=== PATIENT | female | born 1995 | race Caucasian/White ===

== ENCOUNTER 2018-04-16 19:46 | Emergency (ER) | payer BC, SELFPAY ==
[2018-04-16 19:54] VITALS: BP 134/94; PULSE 120; RESP 18; TEMP 37.4; O2SAT 97
--- NOTE | 2018-04-16 20:06 | NUR.NOTE ---
blood alcohol level as tested by was .067 Nursing Note:
[2018-04-16 20:36] LABS: Absolute Basophil Count 0.01 k/cumm (0.0-0.2); Absolute Eosinophil Count 0.11 k/cumm (0.0-0.7); Absolute Lymphocyte Count 2.93 k/cumm (1.2-3.4); Absolute Neutrophil Count 2.39 k/cumm (1.2-6.7); Basophils % 0.2; Eosinophils % 1.9; HCT 41.9 % (36.0-46.0); HGB 14.7 g/dL (12.0-15.5); Lymphocytes % 49.3; Mean Corp. HGB Concentration 35.1 g/dL (32.0-36.0); Mean Corpuscular Hemoglobin 30.4 pg (27.0-33.0); Mean Corpuscular Volume 86.6 fL (80-95); Mean Platelet Volume 9.5 fL (8.0-11.0); Monocytes % 8.4; Neutrophils % 40.2; Platelet Count 280 x1000/uL (130-400); RBC 4.84 m/cumm (4.00-5.20); RBC Distribution Width 13.2 % (11.7-14.6); White Blood Cell Count 5.94 k/cumm (4.4-10.8)
[2018-04-16] MEDS: Normal Saline 1,000 ML 1000 ML IV (20:38)
[2018-04-16] MEDS: Ketorolac 15 MG/ML VIAL IVP (20:38)
[2018-04-16 21:00] LABS: ALT 18 U/L (12-78); AST 16 U/L (15-37); Albumin 4.6 g/dL (3.4-5.0); Alkaline Phosphatase 64 U/L (46-116); Anion Gap 11.5 mmol/L (3-11); BUN 12 mg/dL (7-18); Bilirubin, Total 0.3 mg/dL (0.2-1.0); CO2 27.5 mmol/L (21.0-32.0); CREATININE 0.87 mg/dL (0.55-1.02); Calcium 8.8 mg/dL (8.5-10.1); Chloride 105 mmol/L (98-107); Glucose 109 mg/dL (70-100); Potassium 3.8 mmol/L (3.5-5.1); Sodium 144 mmol/L (136-145); Total Protein 8.2 g/dL (6.4-8.2)
[2018-04-16 21:02] LABS: Troponin I < 0.02 ng/mL (0.00-0.06)
--- NOTE | 2018-04-16 21:21 | ED.GENADUL_ITS ---
Discharge Plan Disposition Patient Disposition: HOME Condition: Good Discharge Details Chief Complaint: HeadInjury Clinical Impression: Concussion, Headache Primary Care Provider: Daysi Coronado ED Provider: Reece Schmidt Home Meds and New Rx's Prescriptions: No Action Advair HFA 8 GM HFA aerosol inhaler 2 puff Inhalation BID Qty: 1 RF: 3 PROVENTIL HFA 18 GM HFA.AER.AD 2 puff Inhalation Q4H PRN PRNQty: 2 RF: 1 Liletta 1 EACH intrauterine device 1 ea IU DIRECTED RF: 0 Discharge Instructions Instructions: Concussion (ED), General Headache (ED) Additional Instructions: If you notice any worsening of your symptoms, or any new symptoms such as vomiting, diarrhea, fever, chills, shortness of breath, chest pain, numbness, weakness, or fainting , please return immediately to the emergency department for reevaluation. Please follow up with your primary care provider as soon as possible for reassessment and reevaluation. As always, it was a pleasure participating in your medical care today. Referrals: Daysi Coronado, STUDIO SET UP WORKER [Primary Care Provider] - Medical Decision Making This is a very pleasant 22-year-old female who presents today for evaluation of mild headache. Patient states that she drank a notable amount of champagne at noon, but has had nothing since then. Unfortunately she also fell at that time and did hit her head according to bystanders. She went home and slept, had no episodes of vomiting after the fall, but when she woke up this morning she noted some mild headache. She has no historical or physical exam red flags of significant abnormality or concern with her headache, she shows no clinical signs of meningitis. Signs and symptoms are concerning for mild concussion. Because of the patient's symptoms though, as well as the fall I did discuss with the patient potential CT imaging of the head and neck, however after discussing the risks and benefits the patient has requested to hold off on the CT scan at this time she wants to avoid radiation exposure. Did discuss how this is very small amount, but the patient continues to like to hold off even after understanding the risks and benefits. Of note I do think this is reasonable though she demonstrates no neurologic deficits, no signs of significant trauma, and no other clinically concerning findings at this time. I feel that her headache is most likely secondary to a mild concussion, and recommendation for NSAIDs and continued rest will be given. However, on the patient's initial vital signs she did demonstrate evidence of tachycardia with a heart rate of 120, I did question her historically, and she states that over the last few months she has noted that when she uses her inhaler her heart rate goes up significantly and she feels notable symptoms of palpitations. She denies any recent use of her inhaler, she denies any IV or illicit drug use or any cocaine use. She denies any chest pain or shortness of breath. She denies any new medications. She does have a family history of thyroid disease. At this time, we will get an EKG, basic laboratory workup to rule out any acute process. I feel that her symptoms of elevated heart rate are certainly more chronic than acute, we will rehydrate the patient though and reassess. She did schedule an appointment with her primary care provider this week for her palpitations. 10:23 PM Patient's laboratory workup has returned and is benign, troponin, EKG, TSH are a ll normal, repeat exam demonstrates notable improvement of headache after migraine cocktail. Patient is still refusing any additional imaging. Patient is requesting discharge home at this time. I feel this is very reasonable as her heart rate has normalized, vital signs normal and she is close follow-up for her dictations. With no signs of dysrhythmia, I do not think that a Holter monitor is indicated at this time on an emergent basis. I feel her symptoms are suggestive and clinically consistent with a concussion after falling. Albeit a mild concussion. At this time her symptoms are clinically inconsistent with severe intracranial bleed, meningitis. I have extensively reviewed the treatment plan and discharge instructions with the patient and their family. I have addressed all patient concerns at this time. The patient and family was made aware of what symptoms to monitor for that would warrant a return to the emergency department. Discussed the plan with the patient and family, they demonstrate verbal understanding and agreement with our assessment and plan at this time. EKG 21: 06 Rate 95, sinus rhythm, IN 140, QTc 450, QRS 86, no significant ST elevations or depressions, T wave inversion in V1, no Q waves, no delta wave, no epsilon wave, no other abnormalities. Normal EKG HPI General Date/Time Provider Initiated Documentation: 04/16/18 19:59 . HPI Narrative: This is a pleasant 22-year-old female with past medical history of asthma who presents today for evaluation of headache. Patient states that at lunch she states that she had a whole bottle of champagne, and unfortunately the patient states that she fell and hit her head according to the people who were with her. She denies any recollection of the event, however her compatriots that this happened. She had one episode of vomiting prior to the initial fall, but had no episodes of vomiting after she fell and hit her head. Friends who were there state to that she was able to get up and walk around without difficulty after she fell. Immediately after this she went home and slept for the next 7 hours. When she woke up she noted a mild to moderate headache, and came in for evaluation of this. She states that she has a history of migraines but feels that this feels a little bit different. The patient denies any headache red flags of worst headache of life, thunderclap headache, neck pain, fever, chills, concerning family history of polycystic kidney disease, Marfan syndrome, Germaine-Danlos syndrome, abdominal aortic aneurysm, aortic dissection, or intracranial aneurysm. She denies any symptoms of nausea, chest pain, abdominal pain, midline neck pain. She denies any other complaints or associated symptoms at this time. She states that she feels like she is at her baseline at this time. Boyfriend who brought the patient here also states that she is acting normally. No other complaints at this time. No other modifying factors. She denies any recent surgeries, IV or illicit drug use. Family history is positive for thyroid disease. Related Data Home Medications Medication Instructions Recorded Confirmed Dez 1 ea IU DIRECTED 11/11/16 04/16/18 fluticasone-salmeterol [Advair Hfa 2 puff INHALATION BID #1 inhaler 07/13/17 04/16/18 230-21] Previous Rx's Medication Instructions Recorded fluticasone-salmeterol [Advair Hfa 2 puff INHALATION BID #1 inhaler 07/13/17 230-21] Allergies Allergy/AdvReac Type Severity Reaction Status Date / Time No Known Allergies Allergy Verified 04/16/18 19:56 General Stated Complaint: HeadInjury MARIAN: 4 Review of Systems Review of Systems All systems reviewed & are unremarkable except as noted in HPI and below PFSH Surgical History Tonsillectomy (02/14/17) Family History Mother No problems noted. Father No problems noted. Sister No problems noted. Sister No problems noted. Grandfather No problems noted. Grandmother No problems noted. Social History Smoking/Tobacco Use Status: Never Exam Narrative Exam Narrative: 1.Const: Well-nourished, Well-developed, appearing stated age 2.Eyes: PERRL, no conjunctival injection, and symmetrical lids. 3.ENT: Atraumatic external nose and ears. Moist MM. Neck: Symmetric, trachea midline, No thyromegaly. Patient demonstrates good movement of cervical neck. There is no nuchal rigidity, no nuchal tenderness. Patient is able to flex the neck without any difficulty or significant pain. Negative Kernig's and Brudzinski sign. There is no evidence of raccoon eyes, lin sign, CSF rhinorrhea, mastoid tenderness, cranial crepitus, hemotympanum, exophthalmos, or hyphema. 4.CVS: +S1/S2, No murmurs or gallops. Peripheral pulses 2+ and equal in all extremities. Brisk capillary refill in all extremities. 5.RESP: Unlabored respiratory effort. Clear to auscultation bilaterally. No wheezes rales or rhonchi 6.GI: Soft, Nontender/Nondistended, No hepatosplenomegaly. No guarding or rebound. 7.MSK: Normocephalic/Atraumatic, Extremities w/o deformity or ttp No cyanosis or clubbing, Normal movement of all extremities. Minimal mild tenderness over the anterior forehead, no evidence of bruising or hematoma. No midline tenderness to palpation over the CTLS spine. Minimal left-sided paraspinal cervical spine tenderness. Minimal right-sided paraspinal cervical spine tenderness. No midline cervical spine tenderness. Normal ROM in flexion, extension, side bend, and rotation. Patient has +5 out of 5 strength in the lower extremities in dorsiflexion and plantarflexion, knee flexion and extension, hip flexion and extension. There is +2 over 2 dorsalis pedis pulses bilaterally. There is normal sensation to the skin with light touch at the foot, knee, and hip. Normal saddle sensation. Good sensation over the deep sural nerve area bilaterally. Rectal exam deferred. Reflexes are +2 over 4 in the patellar reflex bilaterally. +5 out of 5 strength in the medial, ulnar, radial nerve distribution bilaterally in the hands as well as intact light touch sensation to these dermatomes on the hands 8.Skin: Warm, Dry. No rashes or lesions. 9.Neuro: merchandise appraiser II-XII grossly intact. Sensation grossly intact, no focal neurologic deficits. All 6 cardinal planes of vision are fully intact. No evidence of rotatory or vertical nystagmus. The patient demonstrated a normal [id number], good dexterity. There was no evidence of dysdiadochokinesia. Patient was able to ambulate without difficulty. There was no wide-based gait. Romberg, and zhlk-[id number] are both normal on testing. Sensation was intact bilaterally as well as muscle strength bilaterally for all extremities. Patient was able to verbalize butter cup with no slurring, or miss pronunciation. 10.Psych: (AAO) x3. Appropriate mood and affect. The patient is able to speak clearly. There is no demonstration of any slurring of speech. There is evidence of clear decision making capacity. Patient is able to ambulate well without any difficulty. There are no signs of ataxia or stumbling motions. Course Vital Signs Temperature 37.4 C 04/16/18 19:54 Pulse 120 H 04/16/18 19:54 Respiratory Rate 18 04/16/18 19:54 Blood Pressure 134/94 H 04/16/18 19:54 Pulse Oximetry 97 04/16/18 19:54 Temperature 37.4 C 04/16/18 19:54 Temperature Source Skin 04/16/18 19:54 Pulse 120 H 04/16/18 19:54 Respiratory Rate 18 04/16/18 19:54 Respiratory Effort 04/16/18 20:07 Blood Pressure 134/94 H 04/16/18 19:54 Blood Pressure Position Supine 04/16/18 19:54 Pulse Oximetry 97 04/16/18 19:54 Oxygen Delivery Method Room Air 04/16/18 19:54 Oxygen Flow Rate 0 04/16/18 19:54 Pain Level 8 04/16/18 19:54 Lab/Test Results Lab/Test Results: Laboratory Tests Range/Units 04/16/18 04/16/18 20:30 20:30 WBC (4.4-10.8) k/cumm 5.94 RBC (4.00-5.20) m/cumm 4.84 Hgb (12.0-15.5) g/dL 14.7 Hct (36.0-46.0) % 41.9 MCV (80-95) fL 86.6 MCH (27.0-33.0) pg 30.4 MCHC (32.0-36.0) g/dL 35.1 RDW (11.7-14.6) % 13.2 Plt Count (130-400) x1000/uL 280 MPV (8.0-11.0) fL 9.5 Immature Gran % 0.0 Neutrophils % 40.2 Lymphocytes % 49.3 Monocytes % 8.4 Eosinophils % 1.9 Basophils % 0.2 Absolute Neutrophils (1.2-6.7) k/cumm 2.39 Absolute Lymphocytes (1.2-3.4) k/cumm 2.93 Absolute Monocytes (0.11-0.7) k/cumm 0.50 Absolute Eosinophils (0.0-0.7) k/cumm 0.11 Absolute Basophils (0.0-0.2) k/cumm 0.01 Sodium (136-145) mmol/L 144 Potassium (3.5-5.1) mmol/L 3.8 Chloride (98-107) mmol/L 105 Carbon Dioxide (21.0-32.0) mmol/L 27.5 Anion Gap (3-11) mmol/L 11.5 H BUN (7-18) mg/dL 12 Creatinine (0.55-1.02) mg/dL 0.87 Estimated GFR/1.73 m2 (mL/min/1.73m2) >= 60.00 Glucose (70-100) mg/dL 109 H Calcium (8.5-10.1) mg/dL 8.8 Total Bilirubin (0.2-1.0) mg/dL 0.3 AST (15-37) U/L 16 ALT (12-78) U/L 18 Alkaline Phosphatase (46-116) U/L 64 Troponin I (0.00-0.06) ng/mL < 0.02 Total Protein (6.4-8.2) g/dL 8.2 Albumin (3.4-5.0) g/dL 4.6
[2018-04-16 21:24] LABS: TSH (W/Ref FT4) 2.07 uIU/mL (0.358-3.74)
[2018-04-16 21:34] VITALS: BP 119/68; PULSE 93; RESP 16; TEMP 37.2; O2SAT 97
[2018-04-16] MEDS: Dexamethasone 10 MG/ML VIAL IVP (22:02)
[2018-04-16] MEDS: diphenhydrAMINE 25 MG CAP PO (22:04)
[2018-04-16] MEDS: Prochlorperazine 10 MG/2 ML VIAL IVP (22:05)
== END 2018-04-16 22:41 | disposition home or self-care (01) ==
PROVIDERS: Emergency Provider Student in an Organized Health Care Education/Training Program
DX: S06.0X0A Concussion without loss of consciousness, initial encounter (principal); W01.0XXA Fall on same level from slipping, tripping and stumbling without subsequent striking against object, initial encounter
CPT/HCPCS: 80053; 96361; 96374; 96375; 99284; 84443; 84484; 85025; J0780; J1100; J1885

== ENCOUNTER 2018-10-10 08:36 | Outpatient (CLI) | payer BC, SELFPAY ==
[2018-10-10 09:57] LABS: ESR 15 mm/hr (0-20)
[2018-10-10 10:19] LABS: Vitamin B12 697 pg/mL (193-986)
[2018-10-11 11:35] LABS: Lyme Ab w Rflx to Lyme Confirm Negative
[2018-10-11 14:40] LABS: ANA Interpretation Negative (NEGAT)
[2018-10-12 06:14] LABS: Vitamin D 25 Total 35.8 ng/ml (30-100)
== END 2018-10-10 08:56 ==
PROVIDERS: Visit Provider Nurse Practitioner
DX: R53.83 Other fatigue (principal); E55.9 Vitamin D deficiency, unspecified
CPT/HCPCS: 36415; 82306; 85652; 82607; 86038; 86618

== ENCOUNTER 2019-10-16 08:04 | Outpatient (CLI) | payer BC, SELFPAY ==
[2019-10-18 06:31] LABS: SARS-CoV-2 RNA Undetected (Undetected); SARS-CoV-2 Specimen Source Nasopharynx
== END 2019-10-16 08:24 ==
PROVIDERS: PCP Nurse Practitioner; Visit Provider Nurse Practitioner
DX: Z11.59 Encounter for screening for other viral diseases (principal)
CPT/HCPCS: U0003

== ENCOUNTER 2020-07-23 09:42 | Outpatient (CLI) | payer BC, SELFPAY ==
[2020-07-24 11:49] LABS: COVID-19 RT-PCR UVMMC Result Negative (Negative)
== END 2020-07-23 09:43 | disposition home or self-care (01) ==
PROVIDERS: PCP Nurse Practitioner; Visit Provider Nurse Practitioner
DX: Z20.822 Contact with and (suspected) exposure to COVID-19 (principal)
CPT/HCPCS: U0003

== ENCOUNTER 2020-10-08 11:04 | Outpatient (CLI) | payer BC, SELFPAY ==
[2020-10-09 11:30] LABS: COVID-19 RT-PCR UVMMC Result Negative (Negative)
== END 2020-10-08 11:05 | disposition home or self-care (01) ==
PROVIDERS: PCP Nurse Practitioner; Visit Provider Nurse Practitioner
DX: Z20.822 Contact with and (suspected) exposure to COVID-19 (principal); R51.9 Headache, unspecified; R11.10 Vomiting, unspecified
CPT/HCPCS: U0003

== ENCOUNTER 2021-06-22 14:20 | Outpatient (REF) | payer OTHER, SELFPAY | END 2021-06-22 14:21 | disposition home or self-care (01) | LOC: LBN 14:20 | PROVIDERS: PCP Nurse Practitioner; Visit Provider Nurse Practitioner Family | DX: N76.0 Acute vaginitis (principal) | CPT/HCPCS: 87480; 87510; 87660 ==

== ENCOUNTER 2021-10-26 16:26 | Outpatient (REF) | payer OTHER, SELFPAY | END 2021-10-26 16:27 | disposition home or self-care (01) | LOC: LBN 16:26 | PROVIDERS: PCP Nurse Practitioner; Visit Provider Nurse Practitioner Family | DX: H60.11 Cellulitis of right external ear (principal) | CPT/HCPCS: 87077; 87070; 87186; 87205 ==

== ENCOUNTER 2022-09-06 09:13 | Outpatient (CLI) | payer OTHER, SELFPAY ==
[2022-09-06 12:26] LABS: HCT 40.7 % (36.0-46.0); HGB 13.8 g/dL (11.2-15.7); MCHC 33.9 % (32.0-36.0); MCV 89 fL (80-95); Platelet Count 296 10^3/uL (130-400); RDW 12.4 % (11.7-14.6); RDW-SD 40.2 fL; WBC 4.64 10^3/uL (4.4-10.8)
[2022-09-06 13:07] LABS: Anion Gap 11.2 mmol/L (3-11); BUN 10 mg/dL (7-18); CO2 25.8 mmol/L (21.0-32.0); CREATININE 0.9 mg/dL (0.55-1.02); Calcium 9.2 mg/dL (8.5-10.1); Chloride 104 mmol/L (98-107); Estimated GFR 89.86 (mL/min/1.73m2); Glucose 103 mg/dL (74-106); Potassium 4.2 mmol/L (3.5-5.1); Sodium 141 mmol/L (136-145); TSH (W/Ref FT4) 2.28 uIU/mL (0.36-3.74)
== END 2022-09-06 09:14 | disposition home or self-care (01) ==
LOC: LOS 09:14
PROVIDERS: PCP Nurse Practitioner Family; Referring Provider Nurse Practitioner Family; Visit Provider Nurse Practitioner Family
DX: Z00.00 Encounter for general adult medical examination without abnormal findings (principal); G43.909 Migraine, unspecified, not intractable, without status migrainosus; J45.909 Unspecified asthma, uncomplicated; F32.9 Major depressive disorder, single episode, unspecified
CPT/HCPCS: 36415; 80048; 85027; 84443

== ENCOUNTER 2023-06-21 10:15 | Outpatient (CLI) | payer BC, SELFPAY ==
[2023-06-21 12:07] LABS: Abs Immature Grans 0.01 10^3/uL (0.0-0.06); Absolute Basophil Count 0.02 10^3/uL (0.0-0.2); Absolute Eosinophil Count 0.04 10^3/uL (0.0-0.7); Absolute Lymphocyte Count 2.33 10^3/uL (1.2-3.4); Absolute Neutrophil Count 1.91 10^3/uL (1.2-6.7); Basophils % 0.4; ESR 6 mm/hr (0-20); Eosinophils % 0.8; HCT 40.7 % (36.0-46.0); HGB 13.6 g/dL (11.2-15.7); Immature Grans % 0.2; Lymphocytes % 48.4; MCH 30.3 pg (27.0-33.0); MCHC 33.4 % (32.0-36.0); MCV 91 fL (80-95); MPV 9.5 fL (8.0-11.0); Monocytes % 10.4; Neutrophils % 39.8; Platelet Count 278 10^3/uL (130-400); RBC 4.49 10^6/uL (3.93-5.22); RDW 13.1 % (11.7-14.6); RDW-SD 43.5 fL; WBC 4.81 10^3/uL (4.4-10.8)
[2023-06-21 12:37] LABS: ALT 23 U/L (14-59); AST 16 U/L (15-37); Alkaline Phosphatase 53 U/L (46-116); Anion Gap 11.2 mmol/L (3-11); BUN 13 mg/dL (7-18); Bilirubin, Total 0.4 mg/dL (0.2-1.0); CO2 25.8 mmol/L (21.0-32.0); CREATININE 0.9 mg/dL (0.55-1.02); Calcium 9.3 mg/dL (8.5-10.1); Chloride 106 mmol/L (98-107); Glucose 94 mg/dL (74-106); Potassium 4.1 mmol/L (3.5-5.1); Sodium 143 mmol/L (136-145); Total Protein 7.5 g/dL (6.4-8.2)
== END 2023-06-21 10:16 | disposition home or self-care (01) ==
LOC: LOS 10:15
PROVIDERS: Family Medicine; PCP Nurse Practitioner Family; Referring Provider Nurse Practitioner Family; Visit Provider Nurse Practitioner Family
DX: G47.33 Obstructive sleep apnea (adult) (pediatric) (principal); Z99.89 Dependence on other enabling machines and devices; R05.9 Cough, unspecified; I10 Essential (primary) hypertension
CPT/HCPCS: 36415; 80053; 85652; 86713; 85025

== ENCOUNTER → 2023-06-21 14:32 | Outpatient (CLI) | payer BC, SELFPAY ==
--- NOTE | 2023-06-21 13:10 | DI.RAD_ITS ---
Exam(s) XR CHEST 2V PA LATERAL EXAM: XR CHEST 2V PA LATERAL CLINICAL HISTORY: cough R05.9 SLEEP APNEA G47.33 Z99.89 KRISTY ON CPAP. TECHNIQUE: 2D digital imaging was performed. COMPARISON: CR CHEST 2 VIEWS PA,LAT from 12/31/2009 FINDINGS: 2 views: Heart size is normal. The mediastinum is not widened. Lungs are clear. No infiltrates nor pleural effusions. IMPRESSION: No acute pulmonary findings. DATA REPOSITORY: RADIATION DOSE DELIVERED:
== END ==
PROVIDERS: PCP Nurse Practitioner Family; Visit Provider Family Medicine
DX: R05.8 Other specified cough (principal); G47.33 Obstructive sleep apnea (adult) (pediatric); Z99.89 Dependence on other enabling machines and devices
CPT/HCPCS: 71046

== ENCOUNTER 2023-07-01 02:40 | Outpatient (CLI) | payer BC, SELFPAY ==
[2023-07-01] MEDS: Levalbuterol HFA 15 GM INH 4 PUFF IH (09:01)
[2023-07-01] MEDS: Inhaler, Assist Device 1 EACH MC (09:02)
--- NOTE | 2023-07-01 09:43 | W.PFT ---
Date of service: 07/01/23 Time of Service: 08:04 Pulmonary Function Test Result Indications: Asthma Interpretation Spirometry: There is no airflow limitation. No bronchodilator response. Lung Volumes: Normal lung volumes Diffusion Capacity: Normal diffusion Airway Pressure: Normal airways resistance Impression Normal pulmonary function testing Clinical Correlation therefore is recommended.
== END 2023-07-01 02:41 | disposition home or self-care (01) ==
LOC: RT 02:40
PROVIDERS: PCP Nurse Practitioner Family; Visit Provider Family Medicine
DX: J45.909 Unspecified asthma, uncomplicated (principal)
CPT/HCPCS: 94060; 94726; 94729

== ENCOUNTER 2023-07-01 18:54 | Outpatient (REF) | payer BC, SELFPAY ==
[2023-07-04 07:57] LABS: IgE 3 IU/mL (<158)
[2023-07-04 10:14] LABS: IgA 68 mg/dL (85-499); IgG 752 mg/dL (610-1616); IgM 203 mg/dL (35-242)
[2023-07-05 22:50] LABS: Aspergillus Fumigatus IgE <0.10 kU/L (<0.70); Beech IgE <0.10 kU/L (<0.70); Bermuda Grass IgE <0.10 kU/L (<0.70); Candida Albicans (Monilia),IgE <0.10 kU/L (<0.70); Cat Epithelium IgE <0.10 kU/L (<0.70); Cedar, IgE <0.10 kU/L (<0.70); Cladosporium IgE <0.10 kU/L (<0.70); Cockroach IgE <0.10 kU/L (<0.70); D Farinae IgE <0.10 kU/L (<0.70); D Pteronyssinus IgE <0.10 kU/L (<0.70); Dog Dander IgE <0.10 kU/L (<0.70); Elm IgE <0.10 kU/L (<0.70); Giant Ragweed IgE <0.10 kU/L (<0.70); Goldenrod IgE <0.10 kU/L (<0.70); Hamster Epithelium, IgE <0.10 kU/L (<0.70); Horse Dander, IgE <0.10 kU/L (<0.70); House Dust/Greer Lab, IgE <0.10 kU/L (<0.70); Mouse Serum Protein IgE <0.10 kU/L (<0.70); Oak IgE <0.10 kU/L (<0.70); Orchard Grass, IgE <0.10 kU/L (<0.70); Spruce, IgE <0.10 kU/L (<0.70); Stemphyllium IgE <0.10 kU/L (<0.70); Timothy Grass IgE <0.10 kU/L (<0.70); Walnut Tree IgE <0.10 kU/L (<0.70); White Pine, IgE <0.10 kU/L (<0.70)
[2023-07-05 23:04] LABS: Botrytis Cinerea IgE <0.10 kU/L (<0.70); False Ragweed, IgE <0.10 kU/L (<0.70)
[2023-07-07 16:47] LABS: CLASS 0; Cedar Red IgE <0.10 kU/L (<0.35)
[2023-07-07 19:54] LABS: Rabbit Epithelium IgE <0.10 kU/L (<0.70)
== END 2023-07-01 18:55 | disposition home or self-care (01) ==
LOC: LBN 18:54
PROVIDERS: PCP Nurse Practitioner Family; Visit Provider Student in an Organized Health Care Education/Training Program
DX: J45.909 Unspecified asthma, uncomplicated (principal)
CPT/HCPCS: 82784; 86003; 82785; 82787; 84307

== ENCOUNTER 2023-07-05 09:43 | Outpatient (CLI) | payer BC, SELFPAY ==
[2023-07-05 13:11] LABS: TSH (W/Ref FT4) 1.49 uIU/mL (0.36-3.74)
[2023-07-06 11:02] LABS: Lyme Ab w Rflx to Lyme Confirm Negative (Negative)
[2023-07-08 00:06] LABS: Anaplasma phagocytophilum Negative (Negative); B. miyamotoi PCR Negative (Negative); Babesia divergens/MO-1 Negative (Negative); Babesia duncani Negative (Negative); Babesia microti Negative (Negative); Ehrlichia chaffeensis Negative (Negative); Ehrlichia ewingii/canis Negative (Negative); Ehrlichia muris eauclairensis Negative (Negative)
== END 2023-07-05 09:44 | disposition home or self-care (01) ==
LOC: LOS 09:43
PROVIDERS: PCP Nurse Practitioner Family; Referring Provider Nurse Practitioner Family; Visit Provider Nurse Practitioner Family
DX: G89.29 Other chronic pain (principal); J45.909 Unspecified asthma, uncomplicated; R53.83 Other fatigue
CPT/HCPCS: 36415; 87798; 84443; 86480; 86618

== ENCOUNTER 2023-07-07 14:10 | Outpatient (CLI) | payer BC, SELFPAY ==
[2023-07-11 13:13] LABS: TB Interpretation Negative (Negative)
== END 2023-07-07 14:11 | disposition home or self-care (01) ==
LOC: LBO 14:11
PROVIDERS: PCP Nurse Practitioner Family; Visit Provider Nurse Practitioner Family
DX: J45.909 Unspecified asthma, uncomplicated; R53.83 Other fatigue; R52 Pain, unspecified
CPT/HCPCS: 86480

== ENCOUNTER 2024-03-01 14:26 | Outpatient (REF) | payer BC, SELFPAY ==
[2024-03-01 21:37] LABS: Abs Immature Grans 0.02 10^3/uL (0.0-0.06); Absolute Basophil Count 0.03 10^3/uL (0.0-0.2); Absolute Eosinophil Count 0.02 10^3/uL (0.0-0.7); Absolute Lymphocyte Count 2.25 10^3/uL (1.2-3.4); Absolute Monocyte Count 0.53 10^3/uL (0.1-0.8); Absolute Neutrophil Count 2.93 10^3/uL (1.2-6.7); Basophils % 0.5 %; Eosinophils % 0.3 %; HCT 42.5 % (36.0-46.0); HGB 14.4 g/dL (11.2-15.7); Immature Grans % 0.3 %; Lymphocytes % 38.9 %; MCH 30.4 pg (27.0-33.0); MCHC 33.9 % (32.0-36.0); MCV 90 fL (80-95); MPV 9.8 fL (8.0-11.0); Monocytes % 9.2 %; Neutrophils % 50.8 %; Platelet Count 295 10^3/uL (130-400); RBC 4.73 10^6/uL (3.93-5.22); RDW 12.8 % (11.7-14.6); RDW-SD 42.3 fL; WBC 5.78 10^3/uL (4.4-10.8)
[2024-03-01 22:58] LABS: ALT 33 U/L (14-59); AST 21 U/L (15-37); Albumin 4.4 g/dL (3.4-5.0); Alkaline Phosphatase 63 U/L (46-116); Anion Gap 11.9 mmol/L (3-11); BUN 13 mg/dL (7-18); Bilirubin, Total 0.47 mg/dL (0.2-1.0); CO2 24.1 mmol/L (21.0-32.0); CREATININE 1.1 mg/dL (0.55-1.02); Chloride 105 mmol/L (98-107); Estimated GFR 69.76 (mL/min/1.73m2); Glucose 90 mg/dL (74-106); Lipase 61 U/L (<78); Magnesium 2.1 mg/dL (1.8-2.4); Potassium 4.1 mmol/L (3.5-5.1); Sodium 141 mmol/L (136-145); Total Protein 7.4 g/dL (6.4-8.2)
== END 2024-03-01 14:27 | disposition home or self-care (01) ==
LOC: LBN 14:26
PROVIDERS: PCP Nurse Practitioner Family; Visit Provider Nurse Practitioner Family
DX: R10.31 Right lower quadrant pain (principal); R11.2 Nausea with vomiting, unspecified
CPT/HCPCS: 80053; 83690; 83735; 85025

== ENCOUNTER 2024-03-02 08:55 | Outpatient (REF) | payer BC, SELFPAY ==
[2024-03-06 13:31] LABS: Helicobacter pylori Ag, Feces Negative (Negative)
== END 2024-03-02 08:56 | disposition home or self-care (01) ==
LOC: LBN 08:55
PROVIDERS: PCP Nurse Practitioner Family; Visit Provider Nurse Practitioner Family
DX: K21.9 Gastro-esophageal reflux disease without esophagitis
CPT/HCPCS: 87338

== ENCOUNTER 2024-03-20 09:23 | Day surgery (SDC) | payer BC, SELFPAY ==
[2024-03-20] MEDS: Lactated Ringers 1,000 ML 80 ML IV (10:02)
--- NOTE | 2024-03-20 10:13 | ANES.PREOP_ITS ---
General Info Date of Service Date Performed: 03/20/24 Height: 5 ft 3 in Weight: 69.2 kg Body Mass Index (BMI): 27.0 Surgical Procedure: Operation Date: 03/20/24 10:20 Proposed Procedure Side Surgeon p Colonoscopy/Gastroscopy Yolanda Beauchamp, Meds Allergies and Home Medications Allergies Allergy/AdvReac Type Severity Reaction Status Date / Time Bleach (Sodium Hypochlorite) Allergy Intermediate hives Verified 03/20/24 09:52 Home Medication ?Medication ?Instructions ?Recorded oxygen-air delivery systems ##1 08/22/20 budesonide-formoterol HFA 160 2 puff inhalation BID #10.2 grams 06/21/23 mcg-4.5 mcg/actuation aerosol inhaler (Symbicort) hydroxyzine HCl 10 mg tablet 10 mg PO TID PRN anxiety 08/17/23 rizatriptan 10 mg disintegrating See Rx Instructions PO .COMPLEX 08/17/23 tablet #10 tabs fluticasone propionate 50 2 spray intranasal DAILY #16 grams 08/30/23 mcg/actuation nasal spray,suspension (Flonase Allergy Relief) albuterol sulfate 90 mcg/actuation 2 puff inhalation Q6H PRN 11/22/23 aerosol inhaler (Proventil HFA) shortness of breath or wheezing #8.5 grams fluoxetine 10 mg capsule 10 mg PO DAILY #90 caps 02/06/24 trazodone 50 mg tablet 100 mg (2 x 50 mg) PO QHS PRN 02/06/24 sleep #180 tabs norethindrone acetate 5 mg tablet 5 mg PO DAILY 02/15/24 omeprazole 40 mg capsule,delayed 40 mg PO DAILY #30 caps 03/01/24 release bisacodyl 5 mg tablet,delayed 5 mg PO ONCE #4 tabs 03/15/24 release (Dulcolax (bisacodyl)) polyethylene glycol 3350 17 17 g PO ONCE #238 grams 03/15/24 gram/dose oral powder Current Visit Medications: Current Medications Generic Name Dose Route Start Last Admin Trade Name Freq PRN Reason Stop Dose Admin Ringer's Solution 1,000 mls @ 80 mls/hr 03/20/24 09:30 03/20/24 10:02 IV 04/19/24 09:29 80 mls/hr INFUSION ARTIE Administration IV Miscellaneous Supplies 1 each 03/20/24 06:00 Iv Access IV 03/20/24 23:59 DIRECTED ARTIE Sodium Chloride 0 ml 03/20/24 06:00 Normal Saline Flush 10 Ml Syr IV 03/20/24 23:59 PRN PRN Sodium Chloride 0 ml 03/20/24 06:00 Normal Saline 10 Ml Vial IJ 03/20/24 23:59 DIRECTED PRN Sterile Water 0 ml 03/20/24 06:00 Water,Injection,Sterile 10 Ml Vial IJ 03/20/24 23:59 DIRECTED PRN PFSH Active Problems Active Problems: Problem Status Onset Code Acid reflux Chronic K21.9 RLQ abdominal pain Acute R10.31 Nausea and vomiting Acute R11.2 Environmental allergies Acute Z91.09 Insomnia Acute G47.00 Cough Acute R05.9 Skin lesions, generalized Acute L98.9 Major depression Chronic F32.9 Asthma Chronic J45.909 Menstrual pain Acute N94.6 KRISTY on CPAP Chronic G47.33, Z99.89 Migraine without status migrainosus, not intractable Chronic 01/12/17 G43.909 Medical History Medical History Endometriosis determined by laparoscopy Anxiety and depression (01/12/17) 04/22/17 PHQ-9 SCORE = 14 HAL-7 SCORE=5 Surgical History Surgical History S/P GABI (total abdominal hysterectomy) (~2022) Ovaries remain Tonsillectomy (02/14/17) B/L Tobacco Smoking/Tobacco Use Status: Former Tobacco Use Passive smoking exposure: Yes Second hand exposure: Yes Alcohol Alcohol Intake: current Alcohol intake frequency: a few times a month Alcohol type: beer, wine and hard liquor Substance Use Substance use: Occasionally Substance use type: marijuana Vital Signs and Lab Results Lab Results Blood Type / Crossmatch: No Data to Display Complete Blood Count: White Blood Count 5.78 10^3/uL (4.4-10.8) 03/01/24 14:00 Red Blood Count 4.73 10^6/uL (3.93-5.22) 03/01/24 14:00 Hemoglobin 14.4 g/dL (11.2-15.7) 03/01/24 14:00 Hematocrit 42.5 % (36.0-46.0) 03/01/24 14:00 Platelet Count 295 10^3/uL (130-400) 03/01/24 14:00 Complete Metabolic Panel: Sodium 141 mmol/L (136-145) 03/01/24 14:00 Potassium 4.1 mmol/L (3.5-5.1) 03/01/24 14:00 Chloride 105 mmol/L (98-107) 03/01/24 14:00 Carbon Dioxide 24.1 mmol/L (21.0-32.0) 03/01/24 14:00 BUN 13 mg/dL (7-18) 03/01/24 14:00 Creatinine 1.1 mg/dL (0.55-1.02) H 03/01/24 14:00 Est GFR (CKD-EPI 2020) 69.76 (mL/min/1.73m2) 03/01/24 14:00 Magnesium 2.1 mg/dL (1.8-2.4) 03/01/24 14:00 Calcium 9.0 mg/dL (8.5-10.1) 03/01/24 14:00 Albumin 4.4 g/dL (3.4-5.0) 03/01/24 14:00 Glucose 90 mg/dL (74-106) 03/01/24 14:00 Liver Function Panel: Alanine Aminotransferase (ALT/SGPT) 33 U/L (14-59) 03/01/24 14: 00 Aspartate Amino Transf (AST/SGOT) 21 U/L (15-37) 03/01/24 14:00 Coagulation Panel: No Data to Display Cardiac Panel: No Data to Display Arterial Blood Gas: No Data to Display Venous Blood Gas: No Data to Display Pancreas Panel: Lipase 61 U/L (<78) 03/01/24 14:00 Thyroid Panel: No Data to Display Infectious Disease: No Data to Display Blood Cultures: No Data to Display Toxicology Panel: No Data to Display Panel: No Data to Display Imaging and Studies Imaging and Studies Study information below may be from another EMR and interpreted by another provider. Please see original notes in EMR for more complete details. Pulmonary Function Summary: 07/01/23: Pulmonary Function Test Result Indications: Asthma Interpretation Spirometry: There is no airflow limitation. No bronchodilator response. Lung Volumes: Normal lung volumes Diffusion Capacity: Normal diffusion Airway Pressure: Normal airways resistance Impression Normal pulmonary function testing Clinical Correlation therefore is recommended. Anesthesia Assessment and Plan Anesthesia History Personal History: No History of Anesthesia Complications Family History: No Family History of Anesthesia Complications Exercise Tolerance Exercise Tolerance: Metabolic Equivalents>4 Pertinent Negatives Pertinent Negatives: No Major Cardiovascular Symptoms or Complaints and No Major Pulmonary Symptoms or Complaints Cardiac & Pulmonary Exam Cardiac Exam: Normal S1/S2 Heart Sounds Pulmonary Exam: Clear Bilateral Breath Sounds Implantable Cardiac Device Does patient have a Pacemaker or an ICD?: No Airway Exam Known Difficult Airway: No Mallampati Class: 2 Mouth Opening: Normal (> 3cm) Thyromental Distance: Greater than 3 cm Neck Range of Motion: Full ROM Neck Circumference: Normal Teeth Condition: Normal Dentition ASA Classification ASA Score: ASA 2 Emergency Case?: No NPO Status NPO Status: NPO Clears >2 hours, Solids >8 hours Status Status: History of Hysterectomy Anesthesia Plan Resuscitation Status: Full Code Anesthesia Technique: General Anesthesia Airway Planned: Natural Airway Monitors Used: Standard Monitors
[2024-03-20 10:21] VITALS: BMI 27.0
--- NOTE | 2024-03-20 11:52 | BOWEL_PTH ---
PATIENT: Cesar Acosta LOC: [facility] U#:[id number] AGE/SX: 28/F ROOM: RE03/20/[address]: Yolanda Beauchamp : 1995 BED: DIS: 03/20/2024 SPEC #: [id number] RECD: 03/20/24 12:48 STATUS: TIERNEY REAllyn #: [id number] JENNIFER: 03/20/24 11:[address]: Yolanda Beauchamp DEPT: Surgical Specimen RECD BY: Flores Eng ENTERED: 03/20/24 12:51 SP TYPE: Bowel OTHR DR: Mary Enrique, LOBSTER FISHERMAN Tissues: 1 - BIOPSY BOWEL 2 - BIOPSY BOWEL 3 - STOMACH BIOPSY 4 - STOMACH BIOPSY 5 - ESOPHAGUS BIOPSY 6 - ESOPHAGUS BIOPSY 7 - BIOPSY BOWEL 8 - BIOPSY BOWEL 9 - BIOPSY BOWEL 10 - BIOPSY BOWEL Procedures: GROSS AND MICRO LEVEL 4 Comments: [id number]
[2024-03-20 12:28] VITALS: BP 112/73; PULSE 94; RESP 16; TEMP 36.6; O2SAT 100
--- NOTE | 2024-03-20 12:28 | COLE_ITS ---
Date of service: 03/20/24 Time of Service: 12:28 Colonoscopy Report Date of procedure: 03/20/24 Pre-op diagnosis general: Right lower quadrant abdominal pain Post-op diagnosis procedure note: other (Normal:) Surgeon: Yolanda Beauchamp Anesthesia Type: General LMA/ETT Estimated blood loss (mL): 1 Pathology: other Complications: None Disposition: same day Prep: Miralax/Dulcolax Retraction Time: 10 Procedure Description: After informed consent was obtained, explaining risks of the procedure, including but not limits to: bleeding, infections, complications of anesthesia, perforations (which may require antibiotics and /or surgery and stay in the hospital), and abdominal pain/cramping. The patient was taken to the procedure room and placed in a left decubitous position. Monitors were applied and a time out was done. The patients name, date of , procedure, allergies to medications and metal in their body was reviewed. The patient was then sedated. Once sedated and comfortable a rectal exam was done. External exam was normal. Internal exam revealed a normal sphincter tone and no palpable masses. The previously lubricated Olympus scope was then introduced (see RN notes for scope number) and retrofelexed. No internal hemorrhoids were identified. The scope was then advanced to the cecum without difficulty. The TI and appendiceal orifice were identified. The scope was then slowly retracted over 10 minutes back into the rectum. Polyps: None diverticula: None the mucosa is pink and healthy w/ a normal vascular pattern. The scope was removed, and the patient was woken up and taken back to Same day surgery in stable condition. The patient tolerated the procedure well and there were no immediate complications. Follow up: The patient should follow up at age 44, unless they develop changes in bowel habits or other new gastrointestinal complaints. [place] Bowel Prep [place] Bowel Prep Right Colon: 3 Left Colon: 3 Transverse Colon: 3 Total Score: 9
--- NOTE | 2024-03-20 12:30 | ENDO_ITS ---
Date of service: 03/20/24 Time of Service: 12:30 Endoscopy Report DATE OF PROCEDURE: 03/20/24 PRE-OP DIAGNOSIS: Right upper quadrant and epigastric abdominal pain POST-OP DIAGNOSIS: other (Normal scope) SURGEON: Yolanda Beauchamp ANESTHESIA TYPE: General LMA/ETT ESTIMATED BLOOD LOSS: 2 PATHOLOGY: other COMPLICATIONS: None DISPOSITION: same day PROCEDURE DESCRIPTION: Informed consent was obtained from the pt; explaining the benefits and Risks: bleeding, infections, perforations {which could require surgery or antibiotics and prolonged hospital stay}, or ostomy, and complications of anaesthesia, joaquín aspiration). The patient was take to the procedure room and placed in a supine position. Monitors were applied and a time out was done. The patients name, date of , procedure type, allergies to medications and metal in their body was reviewed. A bite block was placed and the patient was sedated. Once sedated and comfortable an Olympus gastroscope (see RN notes for scope #) was advanced through the oropharynx which was grossly normal, and passed into the e sophagus. The proximal and mid-esophagus were normal. The distal esophagus does not show any: dilation/strictures/varices/erosions or ulcers/bleeding noted. The scope was advanced into the stomach and through the pylorus into the proximal jejunum. A bx is taken for celiac Dx . The duodenum was noted to be normal. Biopsies were done of the duodenal bulb.. The scope was retracted back into the stomach and biopsies were taken of the antrum. There were no gastritis/gastropathy/ ulcers/masses noted. The scope was retroflexed. The cardia and fundus were noted to be normal. There no a hiatal hernia noted. The scope was retracted back into the esophagus and biopsies were done of the GE junction (in all 4 quadrants) and distal esophagus (2cm above the GE junction) to rule out Boyce's. All specimens are retrieved and no bleeding was noted. The Z line was regular. The GE junction was at 36 cm. The scope was removed and the patient was woken up and taken back to [facility] in stable condition.
--- NOTE | 2024-03-20 12:37 | PDOC.DSDIS_ITS ---
Date of service: 03/20/24 Discharge Plan Disposition Patient Disposition: Home Discharge Details Attending Provider: Yolanda Beauchamp Primary Care Provider: Mary Enrique Home Meds and New Rx's Prescriptions: New pantoprazole [Protonix] 40 mg tablet,delayed release (DR/EC) 40 mg PO DAILY Qty: 30 0RF Continued budesonide-formoterol [Symbicort] 160-4.5 mcg/actuation HFA aerosol inhaler 2 puff inhalation BID Qty: 10.2 3RF fluticasone propionate [Flonase Allergy Relief] 50 mcg/actuation spray,suspension 2 spray intranasal DAILY Qty: 16 6RF Rx Instructions: administer into each nostril hydroxyzine HCl 10 mg tablet 10 mg PO TID PRN (Reason: anxiety) Patient Comments: TAKE ONE TABLET BY MOUTH UP TO THREE TIMES A DAY NEEDED rizatriptan 10 mg tablet,disintegrating See Rx Instructions PO .COMPLEX Qty: 10 3RF Rx Instructions: take 1 tab at onset of headache; if no relief may repeat 1 tab after at least 2 hrs; max = 3 tabs/24 hr PO albuterol sulfate [Proventil HFA] 90 mcg/actuation HFA aerosol inhaler 2 puff inhalation Q6H PRN (Reason: shortness of breath or wheezing) Qty: 8.5 0RF trazodone 50 mg tablet 100 mg PO QHS PRN (Reason: sleep) Qty: 180 1RF fluoxetine 10 mg capsule 10 mg PO DAILY Qty: 90 3RF (DME) oxygen-air delivery systems Device See Rx Instructions .ROUTE .MEDSUPPLY Qty: 1 Rx Instructions: As directed norethindrone acetate 5 mg tablet 5 mg PO DAILY Patient Comments: TAKE ONE TABLET BY MOUTH EVERY DAY Discontinued omeprazole 40 mg capsule,delayed release(DR/EC) 40 mg PO DAILY Qty: 30 0RF bisacodyl [Dulcolax (bisacodyl)] 5 mg tablet,delayed release (DR/EC) 5 mg PO ONCE Qty: 4 0RF Rx Instructions: Take per colonoscopy instructions provided by ordering providers office polyethylene glycol 3350 17 gram/dose powder 17 g PO ONCE Qty: 238 0RF Rx Instructions: Take per colonoscopy instructions provided by ordering providers office Discharge Instructions Additional Instructions: DSU Colonoscopy Post- Op Instructions Instructions for Everyone who is given Anesthesia: For your safety, please do the following for the next twenty-four (24) hours: *Do Not operate a motor vehicle (car, truck, motorcycle, etc.) *Do Not drink alcoholic beverages or use any recreational drugs for the first 24 hours or while taking pain medications. The medications in your body may have a reaction that can be dangerous. *Do Not make any important decisions or sign any important papers. Findings: EGD- normal colon:- normal -I did switch your reflux medication from omeprazole to pantoprazole. We can try changing medications to see if that makes any difference Continue with lifestyle modifications: no alcohol, tobacco products, Aspirin or NSAID's (ibuprofen, Motrin, Naprosyn, aleve, etc), soda pop/any carbonated beverages, caffeine (including tea & chocolate), and acidic foods, (tomatoes, citrus, onions, peppermints) spicy or fried/fatty foods. Do not lie down for 30 minutes after eating, and do not eat 2 hours prior to bedtime. Avoid wearing tight fitting clothing/ belts Follow up: The hospital will call you to schedule the ultrasound and we will look at your gallbladder. If the ultrasound is normal then we will do a HIDA scan. 1. No lifting over 20 pounds or strenuous activity for the first 24 hours after your procedure. After 24 hours there are no restrictions on your activity but you may feel fatigued for a few days. 2. After you arrive home you may have a light meal and return to your normal diet as you can tolerate it without feeling sick to your stomach. 3. You may have a bloated, gaseous feeling in your belly (abdomen) after a colonoscopy. Passing gas and belching will help. Walking or lying down on your left side with your knees flexed may relieve the discomfort. Call the office at [phone] (Office) or [phone] (Hospital) right away if you notice any of the following: a.Vomiting of blood or ?coffee ground stools?. b.Rectal bleeding 1Tbsp, blood clots or continuous bleeding. c.Severe belly (abdominal) pain. d.A hard distended belly (abdomen) and an inability to pass gas. 4. Please don?t expect to have a normal BM (bowel movement) for 2-3 days after your procedure. 5. If there are questions regarding the findings of your procedure, please contact your doctor 6. If you are unable to contact your doctor with a problem, contact the hospital at [phone]. 7. Continue all your regular medications unless directed otherwise. I understand the above instructions and have no questions. Signature of Patient or Adult Escort Name of Responsible Adult Escort Signature of Nurse Date/Time Stand Alone Forms: Anesthesia Discharge Isabelle., Herbie Jurado (DSU) Activity:: See above Remove Dressings/Wound Care:: 24 hours Diet:: See above Discharge Orders Discharge Orders: Discharge Order (Routine); Ordered 03/20/24 Ordered By: Yolanda Beauchamp DS: Diagnosis Discharge Diagnosis (1) RUQ abdominal pain: Status: Acute Asessment and Plan: The patient is seen and examined after their colonoscopy.? The patient has been able to pass gas.? They are not having abdominal pain.? They have been able to tolerate liquids and a snack.? They do not have any nausea or vomiting.? They are not having any chest pain or shortness of breath.??? They are not having any rectal bleeding. Their vital signs have been stable-see nursing notes. We discussed findings during their colonoscopy, and any biopsies that were done/polyps that were removed. The patient will be sent a letter with any biopsy results, and when to repeat the colonoscopy.-see discharge instructions. Patient was given explicit instructions to follow-up regarding colonoscopy-refer to discharge instructions.? We reviewed resumption of medications. Patient verbalized understanding and discharged in stable and satisfactory condition- See nursing notes.
[2024-03-20 13:02] VITALS: BP 114/89; PULSE 66; TEMP 36.4; O2SAT 98
--- NOTE | 2024-03-20 13:06 | W.ANESPOSTOP ---
Postoperative Evaluation Date, Time and Location Date Performed: 03/20/24 Time Performed: 12:28 Patient Location: Day Surgery Unit Vital Signs Most Recent Imported Vital Signs: Most Recent Vital Signs Temp Pulse Resp BP Pulse Ox 36.4 C L 66 16 114/89 98 03/20/24 13:02 03/20/24 13:02 03/20/24 12:28 03/20/24 13:02 03/20/24 13:02 Pain Score Most Recent Pain Score: Most Recent Pain Score Pain Level 0 03/20/24 13:02 Assessment Mental Status: Awake (Alert & Oriented to Patient Baseline) Airway and Respiratory Function: Patent airway with normal (patient baseline) respiratory exam Cardiovascular Function: Hemodynamically Stable Hydration Status: Adequately Hydrated Nausea & Vomiting: No Nausea or Vomiting Pain: Pt. Denies Any Pain Peripheral Nerve Block: Patient did not receive a nerve block
--- NOTE | 2024-03-22 06:29 | NUR.NOTE ---
No HCG performed during pre-op on 03/20/24. Documented in error. -BR
== END 2024-03-20 13:13 | disposition home or self-care (01) ==
LOC: SUR 09:24
PROVIDERS: PCP Nurse Practitioner Family; Visit Provider Surgery
PROC: (CPT 45378; principal; 2024-03-20 10:15)
DX: R10.31 Right lower quadrant pain (principal); R10.11 Right upper quadrant pain; R10.13 Epigastric pain; K31.89 Other diseases of stomach and duodenum; K22.89 Other specified disease of esophagus
CPT/HCPCS: 45378; 43239; 88305; J2704

== ENCOUNTER 2024-04-03 02:04 | Outpatient (CLI) | payer BC, SELFPAY ==
--- NOTE | 2024-04-03 06:30 | DI.NM_ITS ---
Exam(s) NM HEPATOBILIARY CCK GRP EXAM: NM HEPATOBILIARY CCK GRP CLINICAL HISTORY: RUQ PAIN, NAUSEA, VOMITING,R10.31,R11.2. TECHNIQUE: Injected dose: 4.5 mCi Tc-99 mebrofenin Initial dynamic images: 60 minutes Post-Gallbladder fillin.02 mcg/kg CCK intravenously over a 30min infusion. Additional images: 45 minute dynamic during CCK administration. COMPARISON: US US ABDOMEN LIMITED from 03/23/2024 FINDINGS: Normal hepatic transit time. Prompt excretion into the small bowel. Prompt excretion into the gallbladder. Patient was asymptomatic during CCK infusion. Gallbladder ejection fraction: 62 percent, in the normal range IMPRESSION: 1. Small gallbladder ejection fraction. SN guidelines: Gallbladder visualization should be present by 3 hours. Delayed cmhvncm-te-[id number] taylor sit beyond 60 min raises the suspicion for partial common bile duct (CBD) obstruction. Gallbladder ejection fraction <35% has a good correlation with acalculous disease (i.e., chronic acal culous cholecystitis, cystic duct syndrome, sphincter of Oddi disease).
== END 2024-04-03 02:24 ==
LOC: DI 02:04
PROVIDERS: PCP Nurse Practitioner Family; Visit Provider Surgery
DX: R11.2 Nausea with vomiting, unspecified (principal); R10.31 Right lower quadrant pain
CPT/HCPCS: 78227

== ENCOUNTER 2024-09-10 09:53 | Outpatient (CLI) | payer BC, SELFPAY ==
[2024-09-10 12:18] LABS: HGB 14.3 g/dL (11.2-15.7); MCH 31.1 pg (27.0-33.0); MCHC 34.9 % (32.0-36.0); MCV 89 fL (80-95); Platelet Count 265 10^3/uL (130-400); RDW 12.2 % (11.7-14.6); RDW-SD 39.7 fL; WBC 4.21 10^3/uL (4.4-10.8)
[2024-09-10 12:23] LABS: Anion Gap 10.5 mmol/L (3-11); BUN 12 mg/dL (7-18); CO2 27.5 mmol/L (21.0-32.0); CREATININE 0.8 mg/dL (0.55-1.02); Calcium 9.6 mg/dL (8.5-10.1); Chloride 103 mmol/L (98-107); Estimated GFR 102.22 (mL/min/1.73m2); Glucose 91 mg/dL (74-106); Potassium 3.7 mmol/L (3.5-5.1); Sodium 141 mmol/L (136-145)
== END 2024-09-10 09:54 | disposition home or self-care (01) ==
LOC: LOS 09:53
PROVIDERS: PCP Nurse Practitioner Family; Referring Provider Nurse Practitioner Family; Visit Provider Nurse Practitioner Family
DX: Z00.00 Encounter for general adult medical examination without abnormal findings (principal); F32.9 Major depressive disorder, single episode, unspecified; K21.9 Gastro-esophageal reflux disease without esophagitis; G43.909 Migraine, unspecified, not intractable, without status migrainosus; J45.909 Unspecified asthma, uncomplicated; N80.9 Endometriosis, unspecified
CPT/HCPCS: 36415; 80048; 85027

== ENCOUNTER 2024-11-05 04:20 | Outpatient (CLI) | payer BC, SELFPAY ==
[2024-11-05 09:39] LABS: TSH 1.14 uIU/mL (0.36-3.74)
== END 2024-11-05 04:21 | disposition home or self-care (01) ==
LOC: LBO 04:20
PROVIDERS: PCP Nurse Practitioner Family; Visit Provider Nurse Practitioner Acute Care
DX: K59.04 Chronic idiopathic constipation (principal); K58.1 Irritable bowel syndrome with constipation; R14.0 Abdominal distension (gaseous); R10.13 Epigastric pain
CPT/HCPCS: 36415; 82784; 84443

== ENCOUNTER 2024-11-07 18:28 | Emergency (ER) | payer BC, SELFPAY ==
--- NOTE | 2024-11-07 18:15 | RT.EKG_ITS ---
APPROVED REPORT Exam: Resting ECG Reason for Exam: chest pain Patient Location: E HR:79 bpm ECG Measurements Heart Rate 79 AXIS IA 146 P 61 QRSd 83 QRS 63 QT 380 T 41 QTc 436 Conclusion Sinus rhythm, rate 79 No interval abnormalities No STEMI No priors available for comparison
[2024-11-07 18:38] VITALS: BP 124/65; PULSE 81; RESP 16; TEMP 36.8; O2SAT 100
--- NOTE | 2024-11-07 19:03 | ED.GENADUL_ITS ---
Discharge Plan Disposition Patient Disposition: Home Condition: Stable Discharge Details Clinical Impression: Bronchitis Primary Care Provider: Mary Enrique ED Provider: Luz Maria Yepez Home Meds and New Rx's Prescriptions: New azithromycin [Zithromax] 250 mg tablet 250 mg PO DAILY 4 Days Qty: 4 0RF Rx Instructions: start on day 2 of therapy (11/07/2024) No Action fluticasone propionate [Flonase Allergy Relief] 50 mcg/actuation spray,suspension 2 spray intranasal DAILY Qty: 16 6RF Rx Instructions: administer into each nostril hydroxyzine HCl 10 mg tablet 10 mg PO TID PRN (Reason: anxiety) Patient Comments: TAKE ONE TABLET BY MOUTH UP TO THREE TIMES A DAY NEEDED trazodone 50 mg tablet 100 mg PO QHS PRN (Reason: sleep) Qty: 180 1RF fluoxetine 10 mg capsule 10 mg PO DAILY Qty: 90 3RF ondansetron HCl 4 mg tablet 4 mg PO Q8H PRN (Reason: nausea and vomiting) Qty: 10 0RF (DME) oxygen-air delivery systems Device See Rx Instructions .ROUTE .MEDSUPPLY Qty: 1 Rx Instructions: As directed rizatriptan 10 mg tablet,disintegrating See Rx Instructions PO .COMPLEX Qty: 10 3RF Rx Instructions: take 1 tab at onset of headache; if no relief may repeat 1 tab after at least 2 hrs; max = 3 tabs/24 hr PO budesonide-formoterol [Symbicort] 160-4.5 mcg/actuation HFA aerosol inhaler 2 puff inhalation BID Qty: 10.2 3RF albuterol sulfate [Proventil HFA] 90 mcg/actuation HFA aerosol inhaler 2 puff inhalation Q6H PRN (Reason: shortness of breath or wheezing) Qty: 8.5 0RF Discharge Instructions Instructions: Bronchitis, Adult ED Additional Instructions: You were seen in the emergency department today for evaluation of chest pain worse with breathing. In our department you have a full physical examination performed and had reassuring vital signs. You had an x-ray that is concerning for bronchitis, and laboratory studies that were otherwise reassuring against severe infection such as pneumonia, heart attack or damage to your heart, blood clot in your lungs, or abnormalities in your abdominal organs such as your liver, kidney, and pancreas. It is safe for you to go home and continue to use your inhalers as prescribed. I recommend Tylenol and ibuprofen as needed for pain, and provided you with a course of azithromycin for treatment of bronchitis. Please follow-up with your primary care provider in the next few days to discuss this visit and any symptoms that change, worsen, or persist. Thank you for allowing us to be part of your care. HPI General Mode of arrival: ambulatory . Date/Time Provider Initiated Documentation: 11/07/24 18:39 . Limitations to Documentation: no limitations . Information obtained by: patient, family and old records reviewed . HPI Narrative: This is a 29-year-old female patient with a history of asthma and KRISTY presenting for evaluation of chest pain worse with breathing. The patient reports that this started last night, and initially she thought that it was due to her anxiety, she took her hydroxyzine and slept but states that when she woke up her symptoms had not improved. The pain is constant, but does occasionally worsen with a sharp overlying pain, located just right of her sternum. She reports that she has had some shortness of breath and cough over the last month or so, which she attributed to environmental effects, has been using her inhaler, denies fever or chills, runny nose, hemoptysis. She has no personal history of heart disease. She does not use hormonal medications, denies leg swelling or calf tenderness. Related Data Home Medications ?Medication ?Instructions ?Recorded ?Confirmed oxygen-air delivery systems ##1 08/22/20 09/10/24 hydroxyzine HCl 10 mg tablet 10 mg PO TID PRN anxiety 08/17/23 09/10/24 fluticasone propionate 50 2 spray intranasal DAILY #16 grams 08/30/23 09/10/24 mcg/actuation nasal spray,suspension (Flonase Allergy Relief) fluoxetine 10 mg capsule 10 mg PO DAILY #90 caps 01/1909/10/24 trazodone 50 mg tablet 100 mg (2 x 50 mg) PO QHS NC N 02/06/24 09/10/24 sleep #180 tabs ondansetron HCl 4 mg tablet 4 mg PO Q8H PRN nausea and 04/18/24 09/10/24 vomiting #10 tabs budesonide-formoterol HFA 160 2 puff inhalation BID #1 0.2 grams 09/10/24 09/10/24 mcg-4.5 mcg/actuation aerosol inhaler (Symbicort) rizatriptan 10 mg disintegrating See Rx Instructions P O .COMPLEX 09/10/24 09/10/24 tablet #10 tabs albuterol sulfate 90 mcg/actuation 2 puff inhalation Q 6H PRN 10/25/24 aerosol inhaler (Proventil HFA) shortness of breath or wheezing #8.5 grams azithromycin 250 mg tablet 250 mg PO DAILY 4 days #4 t abs 11/07/24 (Zithromax) Previous Rx's ?Medication ?Instructions ?Recorded fluticasone propionate 50 2 spray intranasal DAILY #16 grams 08/30/23 mcg/actuation nasal spray,suspension (Flonase Allergy Relief) fluoxetine 10 mg capsule 10 mg PO DAILY #90 caps 01/19 11/11 trazodone 50 mg tablet 100 mg (2 x 50 mg) PO QHS NC N 02/06/24 sleep #180 tabs ondansetron HCl 4 mg tablet 4 mg PO Q8H PRN nausea and 04/18/24 vomiting #10 tabs budesonide-formoterol HFA 160 2 puff inhalation BID #1 0.2 grams 09/10/24 mcg-4.5 mcg/actuation aerosol inhaler (Symbicort) rizatriptan 10 mg disintegrating See Rx Instructions P O .COMPLEX 09/10/24 tablet #10 tabs albuterol sulfate 90 mcg/actuation 2 puff inhalation Q 6H PRN 10/25/24 aerosol inhaler (Proventil HFA) shortness of breath or wheezing #8.5 grams azithromycin 250 mg tablet 250 mg PO DAILY 4 days #4 t abs 11/07/24 (Zithromax) Allergies Allergy/AdvReac Type Severity Reaction Status Date / Time Bleach (Sodium Hypochlorite) Allergy Intermediate hives Verified 11/07/24 18:40 General Stated Complaint: Chest Pain MARIAN: 3 Exam Narrative Exam Narrative: Gen: awake and alert, in no apparent distress. Appears well nourished. HEENT: PERRL. External ears and nose normal, mucous membranes moist. Neck: Supple, full range of motion, no observable masses Lungs: No increased work of breathing, lung sounds clear and equal bilaterally without wheezes, rhonchi, or rales. CV: Heart with regular rate and rhythm, no murmurs auscultated. Strong and symmetrical radial pulses. Abdomen: Soft, nondistended, non-tender to palpation. No rigidity, rebound tenderness, or guarding. MSK: No joint swelling, no redness. Full ROM without limitation, no external traumatic findings. No unilateral calf swelling or tenderness, no peripheral edema Skin: No rashes or lesions to visualized skin. Normal color, warm, and dry. Neuro: Cranial nerves II-XII intact and symmetrical bilaterally. 5/5 strength in all muscle groups x4 extremities. No sensory deficits. Ambulates with steady gait. Psych: Appropriate for situation. Course Vital Signs Vital signs: Vital Signs Temperature 36.8 C 11/07/24 18:38 Pulse 81 11/07/24 18:38 Respiratory Rate 16 11/07/24 18:38 Blood Pressure 124/65 11/07/24 18:38 Pulse Oximetry 100 11/07/24 18:38 Temperature 36.8 C 11/07/24 18:38 Temperature Source Oral 11/07/24 18:38 Pulse 81 11/07/24 18:38 Respiratory Rate 16 11/07/24 18:38 Blood Pressure 124/65 11/07/24 18:38 Blood Pressure Position Sitting 11/07/24 18:38 Pulse Oximetry 100 11/07/24 18:38 Oxygen Delivery Method Room Air 11/07/24 18:38 Oxygen Flow Rate 0 11/07/24 18:38 Pain Level 8 11/07/24 18:38 Medical Decision Making This is a 29-year-old female patient presenting for evaluation of chest pain that is worse with deep breath. My differential includes but is not limited to ACS including STEMI, NSTEMI, unstable angina, certainly considered arrhythmia, pericarditis/myocarditis, aortic pathology. Considered pulmonary abnormalities including pneumonia, bronchitis, pleural effusion, pulmonary edema, reactive airway disease, pneumothorax. The patient is without tachycardia, hypoxia, or evidence of DVT to significantly increase my concern for pulmonary embolism. No GI symptoms or vomiting to suggest Boerhaave's, esophagitis, peptic ulcer disease, pancreatitis. Considered musculoskeletal pathologies including costochondritis, chest wall pain. We obtained an EKG which I reviewed, which shows a sinus rhythm without evidence of ischemia, interval abnormality, or ectopy. We will obtain laboratory studies to include CBC, CMP, magnesium, troponin, D-dimer, and obtain a chest x-ray. The patient is not desiring of any medications for management of pain at this time. -I independently interpreted the laboratory studies, which show no significant leukocytosis, anemia, or thrombocytopenia. The chemistry panel is without evidence of electrolyte abnormality, kidney dysfunction, or liver injury. Troponin is very low at 4 and given the duration of symptoms and the patient's lack of risk factors I do not see an indication for protocol for delta troponin. D-dimer was negative, chest x-ray reviewed by myself and does show evidence of bronchitis, and given the patient's duration of symptoms of shortness of breath greater than 2 weeks, it is not unreasonable to provide her with a course of azithromycin at this time. I also counseled her on continuing to use her inhalers, and Tylenol and ibuprofen for management of pain. At this time, the patient has had a full medical evaluation and is safe for discharge to home. They are hemodynamically stable, ambulatory, and tolerating PO. They are understanding of the follow-up plan and return precautions. They left our facility without incident. Luz Maria Yepez MD Quality:SDOH Health Related Social Needs: Health related social needs house/econ circumstance lo mark anthony/isolated PFSH All Active Problems (Updated 11/07/24 @ 20:16 by Luz Maria Yepez MD) Bronchitis (Acute) Acid reflux (Chronic) RLQ abdominal pain (Acute) Nausea and vomiting (Acute) Environmental allergies (Acute) Insomnia (Acute) Cough (Acute) Skin lesions, generalized (Acute) Major depression (Chronic) 09/27/19- seen at [facility]; recommendations to come Asthma (Chronic) Menstrual pain (Acute) KRISTY on CPAP (Chronic) Very mild Migraine without status migrainosus, not intractable (Chronic 01/12/17) Medical History (Updated 11/07/24 @ 20:16 by Luz Maria Yepez MD) Endometriosis determined by laparoscopy Anxiety and depression (01/12/17) 04/22/17 PHQ-9 SCORE = 14 HAL-7 SCORE=5 Surgical History (Updated 03/23/24 @ 07:51 by Mile Haji) History of esophagogastroduodenoscopy (~02/2024) History of colonoscopy (~02/2024) S/P GABI (total abdominal hysterectomy) (~2023) Ovaries remain Tonsillectomy (02/14/17) B/L Family History Mother Cancer Mothers cousin had brain cancer. Father No problems noted. Sister No problems noted. Sister No problems noted. Maternal Grandfather Cancer Maternal grandfather brother had bladder cancer. Maternal grandfathers father had brain cancer. Maternal Grandmother Cancer Lung cancer Paternal Grandfather No problems noted. Paternal Grandmother No problems noted. Social History Smoking/Tobacco Use Status: Former Tobacco Use tobacco type: cigarettes Quit Date: 03/21/17 Tobacco: How many years used: 6 Second Hand Exposure: Yes Smoking risk assessment performed?: Yes Alcohol Intake: current Alcohol Intake frequency: a few times a month Alcohol type: beer, wine and hard liquor Drug use: Occasionally Substance use type: marijuana Caregiver/Support person: No Household members: significant other Housing: house Communication Needs: Corrective Lenses Do you need help understanding health information?: Rarely Pets and animals: Yes Pets and animals: dog(s), ferret(s) and other Details: Rabbit Sexually active: Yes Do you think of yourself as: straight/heterosexual Current gender identity: female What is your relationship status?: living with partner How often do you talk on the phone with friends or family?: three or more times per week How often do you get together with friends or relatives?: three or more times per week How often do you attend amish or hinduism services?: decline to answer Do you belong to any clubs or organized social groups?: no Panel score (0-1 are the most socially isolated patients): 2 What type of physical activity do you participate in: walking Duration: 30-45 minutes/day Frequency: daily Constance/Caodaism: None Special constance needs: No Seatbelt use: always Helmet use: Yes Helmet use: always Drive intox or ride w/intox hyster driver: No Do you feel safe at home: Yes Do you feel safe in your relationship?: Yes
[2024-11-07 19:16] LABS: Abs Immature Grans 0.01 10^3/uL (0.0-0.06); HCT 35.0 % (36.0-46.0); HGB 11.9 g/dL (11.2-15.7); Immature Grans % 0.2 %; MCH 30.6 pg (27.0-33.0); MCHC 34.0 % (32.0-36.0); MCV 90 fL (80-95); MPV 10.5 fL (8.0-11.0); Platelet Count 176 10^3/uL (130-400); RBC 3.89 10^6/uL (3.93-5.22); RDW 12.5 % (11.7-14.6); RDW-SD 40.7 fL; WBC 6.58 10^3/uL (4.4-10.8)
--- NOTE | 2024-11-07 19:31 | DI.RAD_ITS ---
Exam(s) XR CHEST 2V PA LATERAL EXAM: XR CHEST 2V PA LATERAL CLINICAL HISTORY: Chest pain. TECHNIQUE: 2D digital imaging was performed. COMPARISON: CR XR CHEST 2V PA LATERAL from 06/21/2023 FINDINGS: 2 views: Heart size is normal. The mediastinum is not widened. Lungs are clear. No infiltrates nor pleural effusions. IMPRESSION: No acute pulmonary findings. DATA REPOSITORY: RADIATION DOSE DELIVERED:
--- NOTE | 2024-11-07 19:37 | DI.VRAD_ITS ---
PROCEDURE INFORMATION: Exam: XR Chest Exam date and time: 11/07/2024 19:29 Age: 29 years old Clinical indication: Chest pressure; Chest pain TECHNIQUE: Imaging protocol: Radiologic exam of the chest. Views: 2 views. COMPARISON: CR XR CHEST 2V PA LATERAL 06/21/2023 12:57 FINDINGS: Lungs: Mild central interstitial thickening. No airspace consolidation. Pleural spaces: No pleural effusion. No pneumothorax. Heart/Mediastinum: No cardiomegaly. Bones/joints: No acute fracture. IMPRESSION: Interstitial disease suggesting bronchitis. Dictated and Authenticated by: Barb Peterson MD. Orderin [facility] MD
[2024-11-07 19:40] LABS: ALT 28 U/L (14-59); AST 21 U/L (15-37); Albumin 4.2 g/dL (3.4-5.0); Alkaline Phosphatase 42 U/L (46-116); Anion Gap 9.6 mmol/L (3-11); BUN 11 mg/dL (7-18); Bilirubin, Total 0.5 mg/dL (0.2-1.0); CO2 27.4 mmol/L (21.0-32.0); Calcium 9.2 mg/dL (8.5-10.1); Chloride 103 mmol/L (98-107); Estimated GFR 88.20 (mL/min/1.73m2); Glucose 102 mg/dL (74-106); Lipase 49 U/L (<78); Magnesium 1.8 mg/dL (1.8-2.4); Potassium 3.5 mmol/L (3.5-5.1); Sodium 140 mmol/L (136-145); Total Protein 6.8 g/dL (6.4-8.2); Troponin I 4 ng/L (<or=51)
[2024-11-07 19:56] LABS: D-Dimer 313 ng/mlFEU (<500)
[2024-11-07 20:27] VITALS: RESP 18
[2024-11-07 20:28] VITALS: BP 116/58; PULSE 76; RESP 16; O2SAT 98
[2024-11-07] MEDS: Azithromycin 250 MG TAB 500 MG PO (20:29)
== END 2024-11-07 21:12 | disposition home or self-care (01) ==
PROVIDERS: Emergency Provider Emergency Medicine; PCP Nurse Practitioner Family
DX: J40 Bronchitis, not specified as acute or chronic (principal); R07.89 Other chest pain; Z59.89 Other problems related to housing and economic circumstances; Z60.8 Other problems related to social environment
CPT/HCPCS: 99284 ×2; 36415; 80053; 83690; 93005; 71046; 83735; 84484; 85025; 85379; 93010